=== PATIENT | male | born 1950 | race Caucasian/White ===

== ENCOUNTER 2022-09-26 11:36 | Emergency (ER) | payer MEDICARE, OTHER ==
[2022-09-26 12:41] LABS: MEAN CORPUSCULAR HEMOGLOBIN 34.1 pg (27.0-32.0); MEAN CORPUSCULAR HGB CONC 34.1 g/dL (31.0-35.0); MEAN PLATELET VOLUME 10.7 fL (6.0-10.0); RED BLOOD CELL COUNT 4.11 M/uL (4.50-6.50); RED CELL DISTRIBUTION WIDTH 12.9 % (11.0-16.0); WHITE BLOOD CELL COUNT,WBC 6.2 K/uL (4.0-11.0)
[2022-09-26 13:01] LABS: INR 1.1 (1.0-3.5)
[2022-09-26 13:08] LABS: A/G RATIO 0.9 (0.8-2.0); ALBUMIN 3.5 g/dL (3.4-5.0); ANION GAP 13.3 mmol/L (5.0-15.0); BILIRUBIN TOTAL 1.1 mg/dL (0.0-1.0); BUN/CREATININE RATIO 11.6 (6-25); CALCIUM 9.5 mg/dL (8.5-10.1); CARBON DIOXIDE,CO2 28.9 mmol/L (21.0-32.0); CREATININE 0.95 mg/dL (0.70-1.30); EST CRCL DRUG DOSING (CG) 81.77 mL/min; POTASSIUM,K 4.2 mmol/L (3.5-5.1); PROTEIN TOTAL,TP 7.4 g/dL (6.4-8.2)
== END 2022-09-26 13:45 | disposition home or self-care (01) ==
LOC: LB.ED 11:36
DX: I86.4 Gastric varices (principal); K21.9 Gastro-esophageal reflux disease without esophagitis; E11.9 Type 2 diabetes mellitus without complications; Z88.8 Allergy status to other drugs, medicaments and biological substances; Z79.899 Other long term (current) drug therapy
CPT/HCPCS: 36415; 80053; 82140; 83605; 85027; 85610; 99284

== ENCOUNTER 2022-10-11 08:06 | Emergency (ER) | payer MEDICARE ==
[2022-10-11 09:13] LABS: BASOPHILS ABSOLUTE AUTO 0.03 K/uL (0.02-0.10); BASOPHILS PERCENT AUTO 0.5 % (0.0-0.5); EOSINOPHILS ABSOLUTE AUTO 0.22 K/uL (0.04-0.40); EOSINOPHILS PERCENT AUTO 3.5 % (1.0-5.0); HEMATOCRIT 36.2 % (40.0-54.0); HEMOGLOBIN 12.2 g/dL (13.0-18.0); LYMPHOCYTES ABSOLUTE AUTO 1.94 K/uL (1.50-4.00); MEAN CORPUSCULAR HEMOGLOBIN 33.9 pg (27.0-32.0); MEAN CORPUSCULAR HGB CONC 33.7 g/dL (31.0-35.0); MEAN CORPUSCULAR VOLUME 101 fL (76-96); MEAN PLATELET VOLUME 10.7 fL (6.0-10.0); MONOCYTES ABSOLUTE AUTO 0.66 K/uL (0.20-0.80); MONOCYTES PERCENT AUTO 10.5 % (3.0-10.0); NEUTROPHILS ABSOLUTE AUTO 3.41 K/uL (2.00-7.50); NEUTROPHILS PERCENT AUTO 54.5 % (45.0-70.0); PLATELET COUNT,PLT 105 K/uL (150-400); RED CELL DISTRIBUTION WIDTH 13.6 % (11.0-16.0); WHITE BLOOD CELL COUNT,WBC 6.3 K/uL (4.0-11.0)
[2022-10-11 09:28] LABS: INR 1.2 (1.0-3.5); PTT,PARTIAL THROMBOPLSTIN TIME 32.1 SECONDS (24.4-33.2)
[2022-10-11 09:31] LABS: PROTHROMBIN TIME 12.8 sec (9.0-11.5)
[2022-10-11] MEDS: Iopamidol 755 Mg/ML 100 ML Bottle IV SCH (09:34)
[2022-10-11] MEDS: Sodium Chloride 0.9% 50 ML SDV FLUSH ONE (09:34)
[2022-10-11 09:43] LABS: A/G RATIO 0.9 (0.8-2.0); ALANINE AMINOTRANSFERASE,ALT 25 U/L (12-78); ALBUMIN 3.3 g/dL (3.4-5.0); ALKALINE PHOSPHATASE 52 U/L (46-116); ANION GAP 12.4 mmol/L (5.0-15.0); ASPARTATE AMNIOTRANSFERASE,AST 25 U/L (15-37); BLOOD UREA NITROGEN,BUN 15 mg/dL (8-26); BUN/CREATININE RATIO 18.3 (6-25); CALCIUM 9.2 mg/dL (8.5-10.1); CARBON DIOXIDE,CO2 27.4 mmol/L (21.0-32.0); CHLORIDE,CL 107 mmol/L (98-107); CREATININE 0.82 mg/dL (0.70-1.30); ESTIMATED GFR 95 mL/min (>60); GLUCOSE RANDOM 75 mg/dL (74-100); POTASSIUM,K 3.8 mmol/L (3.5-5.1); PROTEIN TOTAL,TP 6.8 g/dL (6.4-8.2); SODIUM,NA 143 mmol/L (136-145)
[2022-10-11] MEDS ORDERED: Sodium Chloride 0.9% 1,000 ML IV SCH (09:45)
[2022-10-11] MEDS ORDERED: Iopamidol 755 Mg/ML 100 ML Bottle IV ONE (10:30)
[2022-10-11] MEDS: Sodium Chloride 0.9% 1,000 ML IV ONE (13:29)
== END 2022-10-11 17:28 ==
LOC: LB.ED 08:06
DX: K92.2 Gastrointestinal hemorrhage, unspecified (principal); I86.4 Gastric varices; E11.9 Type 2 diabetes mellitus without complications; K21.9 Gastro-esophageal reflux disease without esophagitis; Z88.8 Allergy status to other drugs, medicaments and biological substances; Z79.01 Long term (current) use of anticoagulants; Z79.899 Other long term (current) drug therapy
CPT/HCPCS: 36415; 71260; 74177; 80053; 84484; 85018; 85025; 85610; 85730; 86850; 86900; 86901; 93005; 93010; 96360; 99285; J3490; J7030; Q9967